=== PATIENT | female | born 1970 | race Hispanic/Latino ===

== ENCOUNTER 2018-10-30 20:09 | Emergency (ER) | payer OTHER ==
[~2018-10-30] VITALS: Ht 162.6 cm; Wt 99.8 kg
[2018-10-30 20:46] LABS: CLARITY,URINE SL CLOUDY (CLEAR); COLOR,URINE YELLOW (YELLOW); LEUKOCYTE ESTERASE ,URINE TRACE (NEGATIVE); NITRITE,URINE NEGATIVE (NEGATIVE)
[2018-10-30 20:47] LABS: BILIRUBIN,URINE NEGATIVE (NEGATIVE); KETONES,URINE NEGATIVE (NEGATIVE); PROTEIN,URINE DIPSTICK 1+ (NEGATIVE); URINE UROBILINOGEN 0.2 mg/dL (0.2 - 1)
--- NOTE | 2018-10-30 20:51 | Diagnostic Imaging Report ---
EXAM: XR CHEST 2 VIEWS DATE: 10/30/2018 8:22 PM INDICATION: Shortness of breath COMPARISON: None FINDINGS: Lines and Tubes: None Heart and Mediastinum: No acute cardiomediastinal findings. Lungs and Pleura: Patchy bibasilar opacities. Bones and Soft Tissues: No acute findings. IMPRESSION: 1. Basilar opacities which could represent atelectasis/scarring, chronic lung changes, edema, or pneumonia. Correlation follow-up. Signed by: Dr. Raymond Hutchins MD on 10/30/2018 8:48 PM
[2018-10-30 20:56] LABS: WBC,URINE (MAN) 0-5 /HPF (0-5)
[2018-10-30 20:57] LABS: AMORPHOUS SEDIMENT,URINE FEW (FEW); BACTERIA,URINE MODERATE /HPF; EPITHELIAL CELLS,URINE MODERATE /LPF
== END 2018-10-30 21:15 | disposition home or self-care (01) ==
LOC: ER 20:09
DX: R05 Cough (principal); R07.89 Other chest pain; J15.9 Unspecified bacterial pneumonia
CPT/HCPCS: 71046; 81001; 87400; 93005; 99283